=== PATIENT | male | born 1955 | race Asian ===

== ENCOUNTER 2018-11-14 20:43 | Emergency (ER) | payer MEDICARE ==
[2005-11-29 18:51] VITALS: BP 174/119
[~2018-11-14] VITALS: Ht 170.2 cm; Wt 61.8 kg
[2018-11-14 20:44] VITALS: TEMP 97.7
[2018-11-14 21:28] VITALS: BP 149/96; PULSE 95
== END 2018-11-14 21:28 | disposition home or self-care (01) ==
LOC: COL.ER 20:43
DX: S30.812A Abrasion of penis, initial encounter (principal); F17.210 Nicotine dependence, cigarettes, uncomplicated; W23.0XXA Caught, crushed, jammed, or pinched between moving objects, initial encounter